=== PATIENT | male | born 1995 | race Caucasian/White ===

== ENCOUNTER 2018-10-12 14:02 | Emergency (ER) | payer SELFPAY ==
[~2018-10-12] VITALS: Ht 175.3 cm; Wt 76.0 kg
[2018-10-12 14:10] VITALS: BP 121/70
[2018-10-12] MEDS ORDERED: HYDROcodone/acetaminophen 10/325mg tab PO STA (14:35)
[2018-10-12] MEDS ORDERED: LIDOcaine 1% w/epiNEPHrine 1:200,000 30ml vial IM ONE (14:35)
--- NOTE | 2018-10-12 14:58 | NUR ---
SHE[employer] ON THE WAY
[2018-10-12] MEDS ORDERED: LORazepam 1 MG tablet PO ONE (15:00)
[2018-10-12] MEDS ORDERED: HYDROcodone/acetaminophen 10/325mg tab PO ONE (15:00)
[2018-10-12] MEDS ORDERED: HYDR-4383 PO (16:02)
[2018-10-12] MEDS ORDERED: NAPR-56 PO (16:02)
== END 2018-10-12 16:14 | disposition home or self-care (01) ==
LOC: ER 14:03
DX: S62.314A Displaced fracture of base of fourth metacarpal bone, right hand, initial encounter for closed fracture (principal); S62.317A Displaced fracture of base of fifth metacarpal bone, left hand, initial encounter for closed fracture; W22.8XXA Striking against or struck by other objects, initial encounter; Y93.89 Activity, other specified; Y92.89 Other specified places as the place of occurrence of the external cause; Y99.8 Other external cause status
CPT/HCPCS: 26605; 26742; 73130; 99284

== ENCOUNTER 2018-10-22 14:59 | Outpatient (CLI) | payer MEDICAID, OTHER ==
[~2018-10-22 14:59] MED LIST: HYDR-4383 PO; NAPR-56 PO
[2018-10-22 15:03] VITALS: BP 137/76
== END 2018-10-22 16:45 | disposition home or self-care (01) ==
LOC: ORTHO 14:59
PROVIDERS: ATTEND Orthopaedic Surgery
DX: S62.314D Displaced fracture of base of fourth metacarpal bone, right hand, subsequent encounter for fracture with routine healing (principal); X58.XXXD Exposure to other specified factors, subsequent encounter
CPT/HCPCS: G0463